=== PATIENT | female | born 1975 | race Caucasian/White ===

== ENCOUNTER 2018-08-06 12:46 | Emergency (ER) | payer OTHER ==
[2018-08-06 12:56] VITALS: BP 158/115
--- NOTE | 2018-08-06 13:38 | EDPHY ---
H & P Time Seen by Provider: 08/06/18 13:30 HPI/ROS: CHIEF COMPLAINT: Swallowed piece of plastic accidentally HISTORY OF PRESENT ILLNESS: 42-year-old female sleep the unarmed security guard noticed this morning when she woke up that she had likely swallowed a approximately 2 x 1 cm piece of rounded plastic from her unarmed security guard. She called the nurses line recommend she go to the [facility]. Asymptomatic. She denies: Sore throat, chest pain , dyspnea, back pain, abdominal pain, blood per rectum. PRIMARY CARE PROVIDER: REVIEW OF SYSTEMS: 10 systems reviewed and negative with the exception of the elements mentioned in the history of present illness PAST MEDICAL & SURGICAL HISTORY: sleeps with unarmed security guard SOCIAL HISTORY: Single PHYSICAL EXAM (Prior to examination, patient consented to physical exam, hands were washed and my usual and customary physical exam procedures followed) 1) GENERAL: Well-developed, well-nourished, alert and oriented. Appears to be in no acute distress. 2) HEAD: Normocephalic, atraumatic 3) HEENT: Pupils equal, round, reactive to light bilaterally. Sclera anicteric. Nasopharynx, oropharynx, clear, no lesions. Moist mucous membranes. No irritation 4) NECK: Full range of motion, no meningeal signs. No crepitus 5) LUNGS: Clear auscultation bilaterally, no wheezes, no rhonchi, no retractions. 6) HEART: Regular rate and rhythm, no murmur, no heave, no gallop. 7) ABDOMEN: No guarding, no rebound, no focal tenderness, negative McBurney's, negative Todd's, negative Rovsing's, negative peritoneal sign, 8) MUSCULOSKELETAL: Moving all extremities, no focal areas of tenderness, no obvious trauma. No peripheral edema or discoloration. 9) BACK: No visual or palpable abnormality. 10) SKIN: No rash, no petechiae. 11) Psychiatric: Patient is oriented X 3, there is no agitation. DIFFERENTIAL DIAGNOSIS: In no particular order including but not limited to swallowed foreign body, intentional ingestion, accidental ingestion Smoking Status: Never smoked Constitutional: Initial Vital Signs Temperature (C) 37.1 C 08/06/18 12:53 Heart Rate 81 08/06/18 12:53 Respiratory Rate 17 08/06/18 12:53 Blood Pressure 158/115 H 08/06/18 12:53 O2 Sat (%) 95 08/06/18 12:53 O2 Delivery Mode Room Air Allergies/Adverse Reactions: latex Allergy (Verified 04/26/16 15:44) sulfamethoxazole [From Bactrim] Allergy (Verified 04/26/16 15:44) Other-Enter Comments trimethoprim [From Bactrim] Allergy (Verified 04/26/16 15:44) Other-Enter Comments Home Medications: Medication Instructions Recorded Cyclobenzaprine [Flexeril 10 MG 10 mg PO TID PRN 06/25/12 (RX)] Aspirin 81mg (OTC) 81 mg PO DAILY 04/26/16 Bystolic 20 mg PO DAILY 04/26/16 Claritin 10 mg 1 tab PO DAILY06 04/26/16 HCTZ (RX) 12.5 mg PO DAILY PRN 04/26/16 Losartan Potassium 100 mg PO DAILY 04/26/16 Multivitamin 1 tab PO DAILY 04/26/16 Unisom 1 tab PO HS PRN 04/26/16 clonIDINE 0.1 mg PO DAILY PRN 04/26/16 MDM/Departure - MDM ED Course/Re-evaluation: Patient is asymptomatic. Given the approximately 2 cm x 1 cm size of plastic I think this will more than likely pass through the stomach. It is made of plastic. I do not think that imaging studies indicated at this time however should she develop abdominal pain, chest pain, blood in stool or any other symptoms needs to return to the ER for re-evaluation. Recommend she check her stool until she is able to find this. I have given her gloves to take home to examine her stool . I saw this patient independently based on established practice protocols. Care of patient under supervision of secondary supervising physician Dr Adan - Depart Disposition: Home, Routine, Self-Care Clinical Impression: accidental ingestion plastic Condition: Good Instructions: Foreign Body Ingestion (ED) Additional Instructions: Check your stool daily with the gloves that I gave you until you find the piece of plastic Referrals: Adia Cannon MD [Primary Care Provider] - 2-3 days, call for appt.
== END 2018-08-06 13:58 | disposition home or self-care (01) ==
DX: T18.9XXA Foreign body of alimentary tract, part unspecified, initial encounter (principal); X58.XXXA Exposure to other specified factors, initial encounter

== ENCOUNTER → 2018-10-16 | Outpatient (CLI) | payer OTHER | LOC: FIMAGING 16:04 | PROVIDERS: ATTEND Obstetrics & Gynecology | DX: D25.9 Leiomyoma of uterus, unspecified (principal); N85.2 Hypertrophy of uterus ==

== ENCOUNTER → 2018-11-21 | Outpatient (CLI) | payer OTHER | LOC: FIMAGING 15:27 | PROVIDERS: ATTEND Obstetrics & Gynecology | DX: Z12.31 Encounter for screening mammogram for malignant neoplasm of breast (principal) ==

== ENCOUNTER → 2019-05-01 | Outpatient (CLI) | payer OTHER | LOC: FIMAGING 15:42 ==